=== PATIENT | female | born 1985 | race Caucasian/White ===

== ENCOUNTER 2023-12-05 22:52 | Emergency (ER) | payer SELFPAY ==
[2023-12-05 23:03] VITALS: BP 154/96
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
[2023-12-06 00:13] VITALS: BP 128/87
[2023-12-06 00:14] VITALS: BP 128/87
== END 2023-12-06 00:14 | disposition home or self-care (01) ==
LOC: EMR 22:52
PROVIDERS: EMERGENCY PHYSICIAN Emergency Medicine; FAMILY PHYSICIAN Family Medicine
DX: S16.1XXA Strain of muscle, fascia and tendon at neck level, initial encounter (principal); S40.012A Contusion of left shoulder, initial encounter; V43.62XA Car passenger injured in collision with other type car in traffic accident, initial encounter; Z98.84 Bariatric surgery status
CPT/HCPCS: 99282